=== PATIENT | female | born 1970 | race Two or more races ===

== ENCOUNTER → 2025-03-11 | Outpatient (CLI) | payer MEDICAID, SELFPAY ==
--- NOTE | 2025-03-11 16:00 | XR_ITS ---
Examination: CT abdomen, without intravenous contrast. CT pelvis, without intravenous contrast. CT abdomen, with intravenous contrast. CT pelvis, with intravenous contrast. 2-D sagittal coronal reconstructions. Date and time of exam: March 11, 2025, 1634 hours INDICATIONS: Intermittent abdominal pain in the lower abdomen beginning 1 year ago, worse the last 6 months CTDI: vol (mGy) 19 DLP: (mGycm) 1067 Technique: Multiple 3.0 axial images of the abdomen and pelvis without intravenous contrast, 3.0 mm slice thickness. Multiple 3.0 postcontrast images abdomen and pelvis also obtained, post intravenous injection 60 cc [id number] 2-D sagittal and coronal reconstructions. Low dose protocols were performed. One or more of the following dose reduction techniques were used; automated exposure control, adjustment of the mA and/or KV according to patient size, use of iterative reconstruction technique. Findings: No focal liver or splenic lesions No gallstones, no common bile duct stones noted No pancreatic or adrenal mass Scarring lower pole right kidney and upper pole right kidney, no hydronephrosis or ureteral calculi Aorta normal size Normal appendix No bowel obstruction No diverticulitis No pelvic mass Bladder intact IMPRESSION: Significant scarring right kidney, no hydronephrosis or ureteral calculi Normal appendix No bowel obstruction diverticulitis or free air Moderate osteopenia
== END | disposition home or self-care (01) ==
PROVIDERS: Referring Provider Student in an Organized Health Care Education/Training Program; Visit Provider Student in an Organized Health Care Education/Training Program
DX: M85.88 Other specified disorders of bone density and structure, other site (principal); N28.89 Other specified disorders of kidney and ureter
CPT/HCPCS: 74178; A4649; Q9967